=== PATIENT | male | born 1965 | race Caucasian/White ===

== ENCOUNTER 2018-10-27 00:44 | Emergency (ER) | payer SELFPAY ==
[~2018-10-27] VITALS: Ht 162.6 cm; Wt 72.7 kg
[2018-10-27 00:57] VITALS: Ht 162.6 cm; Wt 72.7 kg
[2018-10-27] MEDS ORDERED: IBUPROFEN 600 MG TAB PO ONE (06:30)
[2018-10-27] MEDS ORDERED: IBUP-1542 PO (07:25)
[2018-10-27] MEDS ORDERED: ACET-141 PO (07:25)
[2018-10-27] MEDS ORDERED: D-ME118S24 PO (07:25)
--- NOTE | 2018-10-27 07:29 | ERD ---
ER Documentation Chief Complaint Chief Complaint sore throat x 2 days. also c/o cough HPI 53-year-old male presents for sore throat times 2 days. There is also associated cough, headache, subjective fever. Cough noted to be dry. Patient has been taking cough medication and NyQuil and DayQuil without relief. He does have past history of depression. ROS All systems reviewed and are negative except as per history of present illness. Medications Home Meds Active Scripts Ibuprofen* (Motrin*) 600 Mg Tab, 600 MG PO Q6H PRN for PAIN AND OR ELEVATED TEMP, #30 TAB Prov:ABUNDIO GUADALUPE DO 10/27/18 Acetaminophen* (Acetaminophen*) 500 MG Extra Strength Tablet, 500 MG PO Q4H PRN for PAIN AND OR ELEVATED TEMP, #30 TAB Prov:ABUNDIO GUADALUPE DO 10/27/18 D-Methorphan Hb/P-Epd HCl/Bpm (Mhgsivtcqy-Bqbmlhkhgco-Xc Syr) 118 Ml Syrup, 5 ML PO Q4H PRN for COUGH, #1 BOTTLE Prov:ABUNDIO GUADALUPE DO 10/27/18 Allergies Allergies: Coded Allergies: No Known Allergy (Unverified , 10/27/18) PMhx/Soc Medical and Surgical Hx: pt denies Medical Hx History of Surgery: Yes (Lung sx 30 yrs ago) Hx Alcohol Use: Yes (occasional) Hx Substance Use: No Hx Tobacco Use: No Smoking Status: Never smoker Physical Exam Vitals Vital Signs Date Temp Pulse Resp B/P (MAP) Pulse Ox O2 O2 Flow FiO2 Time Delivery Rate 10/27/18 100.0 104 20 170/80 98 00:57 (110) Physical Exam Const: No acute distress Head: Atraumatic Eyes: Normal Conjunctiva ENT: Normal External Ears, bilateral tympanic membrane intact without erythema or bulging noted, nose and Mouth examination normal, no tonsillar swelling or exudate noted Neck: Full range of motion. No meningismus. Resp: Mild decreased breath sounds noted Cardio: Regular rate and rhythm, no murmurs Skin: No petechiae or rashes Ext: No cyanosis, or edema Neur: Awake and alert Psych: Normal Mood and Affect Results 24 hrs Current Medications Medications Dose Sig/Taisha Start Time Status Last (Trade) Ordered Route PRN Stop Time Admin Dose Reason Admin Ibuprofen 600 mg ONCE ONCE 10/27/18 DC 10/27/18 (Motrin) PO 06:30 06:33 10/27/18 06:31 Procedures/MDM Medical Decision Making: Differential diagnosis includes but not limited to upper respiratory infection, pneumonia, sepsis, meningitis. Chest x-ray unremarkable Patient appeared well on physical examination, nontoxic appearing. There was some decreased breath sounds noted however the patient was breathing comfortably and the chest x-ray was unremarkable. There is low suspicion for pneumonia, sepsis, meningitis. Patient likely has an upper respiratory infection, likely viral. Therefore antibiotics not indicated. Discussed symptomatic treatment with patient who agrees with plan. Patient given prescription for supportive medications. Patient advised to follow up with PCP in 1-2 days. Patient advised to return to ED for new or worsening symptoms. Patient stable on discharge from the ED. Disclaimer: Inadvertent spelling and grammatical errors are likely due to EHR/dictation software use and do not reflect on the overall quality of patient care. Also, please note that the electronic time recorded on this note does not necessarily reflect the actual time of the patient encounter. Departure Diagnosis: Primary Impression: URI (upper respiratory infection) URI type: unspecified URI Qualified Codes: J06.9 - Acute upper respiratory infection, unspecified Condition: Fair Patient Instructions: Preventing Common Respiratory Infections Referrals: [facility] YOU HAVE RECEIVED A MEDICAL SCREENING EXAM AND THE RESULTS INDICATE THAT YOU DO NOT HAVE A CONDITION THAT REQUIRES URGENT TREATMENT IN THE EMERGENCY DEPARTMENT. FURTHER EVALUATION AND TREATMENT OF YOUR CONDITION CAN WAIT UNTIL YOU ARE SEEN IN YOUR DOCTORS OFFICE WITHIN THE NEXT 1-2 DAYS. IT IS YOUR RESPONSIBILITY TO MAKE AN APPOINTMENT FOR FOLOW-UP CARE. IF YOU HAVE A PRIMARY DOCTOR --you should call your primary doctor and schedule an appointment IF YOU DO NOT HAVE A PRIMARY DOCTOR YOU CAN CALL OUR PHYSICIAN REFERRAL HOTLINE AT IF YOU CAN NOT AFFORD TO SEE A PHYSICIAN YOU CAN CHOSE FROM THE FOLLOWING [facility], [facility] [address] [facility] [address] [facility] [address] [facility] [address] [facility] [id number] [facility] [facility]. [address] Additional Instructions: Llame al doctor MAANA y amauri danilo MAREN PARA DENTRO DE 1-2 GARCIA.Dgale a la secretaria que nosotros le instruimos hacer esta maren.Avise o llame si pandya condicin se empeora antes de la maren. Regresa aqui si peor o no mejor. ABUNDIO GUADALUPE DO Oct 27, 2018 07:29
[2018-10-27 07:37] VITALS: BP 154/84; PULSE 87; RESP 18
== END 2018-10-27 07:39 | disposition home or self-care (01) ==
LOC: FTE 00:44
DX: J06.9 Acute upper respiratory infection, unspecified (principal)
CPT/HCPCS: 71046